=== PATIENT | male | born 1960 | race Caucasian/White ===

== ENCOUNTER → 2017-03-17 | Outpatient (CLI) | payer OTHER ==
[~2017-03-17] MED LIST: ASCA500 PO; CHOL100010 PO; CYAN10004 PO; MULT-506 PO; ROPI2TAB6 PO; VST25HP PO; WLLSR150 PO; ZLF/50 PO
== END | disposition home or self-care (01) ==
LOC: C.LAB 17:15
DX: Z02.83 Encounter for blood-alcohol and blood-drug test (principal)

== ENCOUNTER 2018-04-13 16:25 | Emergency (ER) | payer BC, OTHER ==
[~2018-04-13] VITALS: Ht 182.9 cm; Wt 74.8 kg
[~2018-04-13 16:25] MED LIST changes: -ASCA500 PO; -CYAN10004 PO; -MULT-506 PO; -WLLSR150 PO; -ZLF/50 PO
[2018-04-13 16:28] VITALS: TEMP 36.8; Ht 182.9 cm; Wt 74.8 kg
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
[2018-04-13] MEDS ORDERED: CHOL1CAP57 PO (17:02)
[2018-04-13] MEDS ORDERED: RQP/2 PO (17:02)
[2018-04-13] MEDS ORDERED: ZLF/100 PO (17:02)
[2018-04-13 17:30] VITALS: BP 109/73; PULSE 80; O2SAT 96
[2018-04-13] MEDS ORDERED: WLLSR150 PO (23:48)
[2018-04-13] MEDS ORDERED: ZLF/50 PO (23:48)
[2018-04-13] MEDS ORDERED: MULT-506 PO (23:51)
[2018-04-13] MEDS ORDERED: ASCA500 PO (23:51)
[2018-04-13] MEDS ORDERED: CYAN10004 PO (23:51)
== END 2018-04-13 17:31 | disposition home or self-care (01) ==
LOC: C.EDB 16:27
DX: T65.894A Toxic effect of other specified substances, undetermined, initial encounter (principal); F32.9 Major depressive disorder, single episode, unspecified; F43.10 Post-traumatic stress disorder, unspecified; F17.200 Nicotine dependence, unspecified, uncomplicated; Z79.899 Other long term (current) drug therapy

== ENCOUNTER 2022-08-25 23:50 | Inpatient (IN) ==
--- NOTE | 2022-08-26 00:41 | Emergency Department Note ---
Impression & Plan Suicidal ideation, Alcohol intoxication The case was signed out to doctor Conley awaiting bed placement. ED Provider Note NAME: SARANYA VIEIRA AGE: 61 SEX: M ARRIVES VIA: Walk-In INFORMANT: Patient ED PROVIDER(S): Lucrecia Carias DO CHIEF COMPLAINT: Suicidal ideation PLAN: Disposition: The case was signed out at change of shift Condition: Good MEDICAL DECISION MAKING: This is a 61-year-old male patient who was intoxicated who presents to the emergency department with thoughts of harming himself. The patient was initially intoxicated and took some time to sober up. Once he was medically cleared, he was evaluated by the ED psychiatric comp field case manager. He is suicidal with thoughts of harming himself. He is willing to admit himself voluntarily f or inpatient psychiatric care. A bed search is underway. The case will be signed out to Dr. Albright at change of shift. Triage Nursing notes reviewed and agree with them. Vital Signs: reviewed and remarkable for tachycardia Differential diagnosis: Alcohol intoxication, mood disorder, thought disorder, suicidal ideation Diagnostics interpreted by me: Laboratory studies: See below HPI: 61/M arrives for evaluation of thoughts of self-harm. Patient has a history of depression and alcohol abuse. He describes [facility] [facility] and then going for a drive at [employer] with thoughts of harming himself. Instead he drove himself here. Patient has a previous history of 3 overdoses. ROS: See above HPI for pertinent positives & negatives. A total of 10 systems reviewed and were otherwise negative. PAST MEDICAL HISTORY:Depression, alcohol abuse, recently diagnosed emphysema PAST SURGICAL HISTORY:See Below FAMILY HISTORY:See Below SOCIAL HISTORY:The patient is [facility]. HOME MEDICATIONS:He just recently tried to restart his sertraline, Wellbutrin, and Vistaril. He tried to quit smoking in the past couple of days. He does continue to drink. ALLERGIES:None VITALS:See Below PHYSICAL EXAMINATION: HEENT: Head - normocephalic and atraumatic. Pupils are equal, round, and reactive to light. Extraocular eye muscles are intact, and sclera are anicteric. Nose - moist nasal mucosa without discharge. Mouth - moist buccal mucosa. Oropharynx is nonerythematous and there is no tonsillar exudate or edema noted. Neck: Supple; no cervical lymphadenopathy or JVD Heart: Regular rate and rhythm. There is a normal S1 and S2 with no murmurs, clicks, or gallops appreciated. Lungs: Clear to auscultation bilaterally with no wheezes, rales, or rhonchi. Abdomen: Soft, completely nontender, nondistended, with good bowel sounds. There are no palpable pulsatile masses or hepatosplenomegaly. There is no guarding, rigidity, or rebound noted. Extremities: No evidence of cyanosis, clubbing, or edema. There are easily palpable peripheral pulses. Skin: warm and dry with good turgor and no rashes. Psych: The patient has a normal affect and makes good eye contact. He does admit to suicidal ideation with no plan. He is currently intoxicated. ED COURSE: Times/Reassessments: 0010: Evaluated in room A6. A complete history and physical was performed. Laboratory studies were drawn as above. The patient was noted to be intoxicated. We waited for the patient to sober up. Once he was more sober, he was evaluated by the ED psychiatric comp field case manager. The patient was evaluated by staff from [facility]. They suggested ordering an EKG, chest x-ray, and pulse ox with ambulation. EKG was unremarkable. Chest x-ray showed no evidence of an acute process. The pulse ox remained normal with ambulation. The review process continues. The case will be signed out to Dr. Benito at change of shift. Lucrecia Carias DO Past Med/Surg History Medical History Acetaminophen overdose Alcohol overdose Ankle sprain Depression Fall Mood disorder Prostate cancer PTSD (post-traumatic stress disorder) Restless leg syndrome Suicide attempt Suicide threat or attempt Urinary problem Surgical History H/O prostatectomy Family History Other No significant family history Social History Smoking Status: Current every day smoker Tobacco Type: Cigarettes Hx Alcohol Use: Yes Preferred Language: Polish Feels Safe at Home: Yes Allergies Allergies Allergy/AdvReac Type Severity Reaction Status Date / Time No Known Allergies Allergy Verified 09/21/21 01:08 Home Meds Home Medications Medication Instructions Recorded Confirmed albuterol sulfate 90 mcg/actuation 2 puff inhalation Q4 PRN Wheezing 08/26/22 08/26/22 aerosol inhaler azithromycin 250 mg tablet 250 mg PO DAILY 08/26/22 08/26/22 bupropion HCl 150 mg 24 hr tablet, 150 mg PO DAILY 08/26/22 08/26/22 extended release hydroxyzine pamoate 25 mg capsule 25 mg PO TID 08/26/22 08/26/22 prednisone 10 mg tablet 10 mg PO BID 08/26/22 08/26/22 sertraline 100 mg tablet 100 mg PO DAILY 08/26/22 08/26/22 Results & Data (ED) Vital Signs Vital Signs - 24 hr 08/25/22 23:56 08/26/22 01:51 08/26/22 04:45 Temperature 36.4 C L Temperature Source Temporal Artery Scan Pulse Rate 107 H Pulse Rate [Finger] 95 H 98 H Pulse Rhythm [Finger] Regular Pulse Strength [Finger] Normal Respiratory Rate 20 18 22 Respiratory Effort / Characteristics Non-Labored Spontaneous Respiratory Depth Normal Normal Blood Pressure 107/69 Blood Pressure [Right Arm] 91/63 L 101/68 Blood Pressure Mean 81 Blood Pressure Mean [Right Arm] 72 79 Pulse Oximetry 98 96 96 Oxygen Delivery Method Room Air Room Air Room Air Sepsis Recent Fever Within 48 Hours No Sepsis New/Unexplained Change in Mental Status N/A Sepsis Action Taken by Nursing No Action Required Laboratory Data Result diagrams: 08/26/22 00:33 08/26/22 00:33 Lab Results 08/26/22 08/26/22 08/26/22 Range/Units 00:15 00:15 00:33 WBC 6.00 (4.8-10.8) K/ul RBC 4.45 L (4.63-6.08) M/uL Hgb 16.8 (14.0-18.0) g/dl Hct 47.1 (40.1-51.0) % MCV 105.8 H (80.0-100.0) fL MCH 37.8 H (25.0-34.0) pg MCHC 35.7 (32.0-36.0) g/dL RDW Std Deviation 48.8 H (36.4-46.3) fL RDW Coeff of Silvia 12.4 (11.5-14.5) % Plt Count 230 (130-400) K/uL MPV 9.8 (9.4-12.4) fL Immature Gran % (Auto) 0.2 % Neut % (Auto) 52.2 % Lymph % (Auto) 39.8 % [place] % (Auto) 7.3 % Eos % (Auto) 0.3 % Baso % (Auto) 0.2 % Neut # (Auto) 3.13 (1.4-6.5) K/uL Lymph # (Auto) 2.39 (1.2-3.4) K/uL [place] # (Auto) 0.44 (0.24-0.82) K/uL Eos # (Auto) 0.02 (0-0.50) K/uL Baso # (Auto) 0.01 (0-0.2) K/uL Immature Gran # (Auto) 0.01 (0.00-0.02) K/uL Sodium (136-145) mmol/L Potassium (3.5-5.1) mmol/L Chloride (98-107) mmol/L Carbon Dioxide (21-32) mmol/L Anion Gap (3-11) BUN (6-23) mg/dl Creatinine (0.6-1.4) mg/dl Est Cr Clr Drug Dosing ml/min Est GFR ( Amer) ml/min Est GFR (Non-Af Amer) ml/min BUN/Creatinine Ratio (10-20) Glucose (70-99(Fasting)) mg/dl Calcium (8.5-10.1) mg/dl Total Bilirubin (0.2-1.0) mg/dl AST (13-39) U/L ALT (7-52) U/L Alkaline Phosphatase (34-104) U/L Total Protein (6.0-8.3) gm/dl Albumin (3.4-5.0) gm/dl Globulin (2.5-4.0) gm/dl Albumin/Globulin Ratio (0.9-2) TSH (0.300-4.500) uIu/ml Urine Color Yellow Urine Appearance Clear (Clear) Urine pH 6.0 (4.5-7.5) Ur Specific [place] 1.003 (1.000-1.030) Urine Protein Negative (Negative) Urine Glucose (UA) Negative (Negative) Urine Ketones Negative (Negative) Urine Blood 1+ H (Negative) Urine Nitrite Negative (Negative) Urine Bilirubin Negative (Negative) Urine Urobilinogen Negative (Negative) Ur Leukocyte Esterase Negative (Negative) Urine WBC (Auto) 0 (0-5) /hpf Urine RBC (Auto) 0-4 (0-4) /hpf U Hyaline Cast (Auto) 0 (0-5) /lpf U Epithel Cells (Auto) 0-5 (0-5) /lpf Urine Bacteria (Auto) Negative (Negative) Salicylates (3.0-30) mg/dl Urine Opiates Screen Neg (Neg) Ur Methadone, Qual Neg (Neg) Acetaminophen (10-30) ug/ml Urine Barbiturates Neg (Neg) Ur Phencyclidine (PCP) Neg (Neg) U Amphetamin/Meth Scrn Neg (Neg) MDMA (Ecstasy) Screen Neg (Neg) U Benzodiazepines Scrn Neg (Neg) Ur Cocaine Metabolite Neg (Neg) U Marijuana (THC) Screen Neg (Neg) Ethyl Alcohol mg/dL (<10.0) mg/dl SARS-CoV-2, RNA, NAAT (NEGATIVE) 08/26/22 08/26/22 08/26/22 Range/Units 00:33 00:33 00:33 WBC (4.8-10.8) K/ul RBC (4.63-6.08) M/uL Hgb (14.0-18.0) g/dl Hct (40.1-51.0) % MCV (80.0-100.0) fL MCH (25.0-34.0) pg MCHC (32.0-36.0) g/dL RDW Std Deviation (36.4-46.3) fL RDW Coeff of Silvia (11.5-14.5) % Plt Count (130-400) K/uL MPV (9.4-12.4) fL Immature Gran % (Auto) % Neut % (Auto) % Lymph % (Auto) % [place] % (Auto) % Eos % (Auto) % Baso % (Auto) % Neut # (Auto) (1.4-6.5) K/uL Lymph # (Auto) (1.2-3.4) K/uL [place] # (Auto) (0.24-0.82) K/uL Eos # (Auto) (0-0.50) K/uL Baso # (Auto) (0-0.2) K/uL Immature Gran # (Auto) (0.00-0.02) K/uL Sodium 138 (136-145) mmol/L Potassium 4.0 (3.5-5.1) mmol/L Chloride 104 (98-107) mmol/L Carbon Dioxide 27 (21-32) mmol/L Anion Gap 7 (3-11) BUN 9 (6-23) mg/dl Creatinine 0.93 (0.6-1.4) mg/dl Est Cr Clr Drug Dosing 68.5 ml/min Est GFR ( Amer) 100.9 ml/min Est GFR (Non-Af Amer) 87.1 ml/min BUN/Creatinine Ratio 9.7 L (10-20) Glucose 77 (70-99(Fasting)) mg/dl Calcium 9.1 (8.5-10.1) mg/dl Total Bilirubin 0.3 (0.2-1.0) mg/dl AST 28 (13-39) U/L ALT 31 (7-52) U/L Alkaline Phosphatase 74 (34-104) U/L Total Protein 7.0 (6.0-8.3) gm/dl Albumin 3.9 (3.4-5.0) gm/dl Globulin 3.1 (2.5-4.0) gm/dl Albumin/Globulin Ratio 1.3 (0.9-2) TSH 0.804 (0.300-4.500) uIu/ml Urine Color Urine Appearance (Clear) Urine pH (4.5-7.5) Ur Specific [place] (1.000-1.030) Urine Protein (Negative) Urine Glucose (UA) (Negative) Urine Ketones (Negative) Urine Blood (Negative) Urine Nitrite (Negative) Urine Bilirubin (Negative) Urine Urobilinogen (Negative) Ur Leukocyte Esterase (Negative) Urine WBC (Auto) (0-5) /hpf Urine RBC (Auto) (0-4) /hpf U Hyaline Cast (Auto) (0-5) /lpf U Epithel Cells (Auto) (0-5) /lpf Urine Bacteria (Auto) (Negative) Salicylates < 3.0 L (3.0-30) mg/dl Urine Opiates Screen (Neg) Ur Methadone, Qual (Neg) Acetaminophen < 3 L (10-30) ug/ml Urine Barbiturates (Neg) Ur Phencyclidine (PCP) (Neg) U Amphetamin/Meth Scrn (Neg) MDMA (Ecstasy) Screen (Neg) U Benzodiazepines Scrn (Neg) Ur Cocaine Metabolite (Neg) U Marijuana (THC) Screen (Neg) Ethyl Alcohol mg/dL (<10.0) mg/dl SARS-CoV-2, RNA, NAAT (NEGATIVE) 08/26/22 08/26/22 Range/Units 00:33 00:33 WBC (4.8-10.8) K/ul RBC (4.63-6.08) M/uL Hgb (14.0-18.0) g/dl Hct (40.1-51.0) % MCV (80.0-100.0) fL MCH (25.0-34.0) pg MCHC (32.0-36.0) g/dL RDW Std Deviation (36.4-46.3) fL RDW Coeff of Silvia (11.5-14.5) % Plt Count (130-400) K/uL MPV (9.4-12.4) fL Immature Gran % (Auto) % Neut % (Auto) % Lymph % (Auto) % [place] % (Auto) % Eos % (Auto) % Baso % (Auto) % Neut # (Auto) (1.4-6.5) K/uL Lymph # (Auto) (1.2-3.4) K/uL [place] # (Auto) (0.24-0.82) K/uL Eos # (Auto) (0-0.50) K/uL Baso # (Auto) (0-0.2) K/uL Immature Gran # (Auto) (0.00-0.02) K/uL Sodium (136-145) mmol/L Potassium (3.5-5.1) mmol/L Chloride (98-107) mmol/L Carbon Dioxide (21-32) mmol/L Anion Gap (3-11) BUN (6-23) mg/dl Creatinine (0.6-1.4) mg/dl Est Cr Clr Drug Dosing ml/min Est GFR ( Amer) ml/min Est GFR (Non-Af Amer) ml/min BUN/Creatinine Ratio (10-20) Glucose (70-99(Fasting)) mg/dl Calcium (8.5-10.1) mg/dl Total Bilirubin (0.2-1.0) mg/dl AST (13-39) U/L ALT (7-52) U/L Alkaline Phosphatase (34-104) U/L Total Protein (6.0-8.3) gm/dl Albumin (3.4-5.0) gm/dl Globulin (2.5-4.0) gm/dl Albumin/Globulin Ratio (0.9-2) TSH (0.300-4.500) uIu/ml Urine Color Urine Appearance (Clear) Urine pH (4.5-7.5) Ur Specific [place] (1.000-1.030) Urine Protein (Negative) Urine Glucose (UA) (Negative) Urine Ketones (Negative) Urine Blood (Negative) Urine Nitrite (Negative) Urine Bilirubin (Negative) Urine Urobilinogen (Negative) Ur Leukocyte Esterase (Negative) Urine WBC (Auto) (0-5) /hpf Urine RBC (Auto) (0-4) /hpf U Hyaline Cast (Auto) (0-5) /lpf U Epithel Cells (Auto) (0-5) /lpf Urine Bacteria (Auto) (Negative) Salicylates (3.0-30) mg/dl Urine Opiates Screen (Neg) Ur Methadone, Qual (Neg) Acetaminophen (10-30) ug/ml Urine Barbiturates (Neg) Ur Phencyclidine (PCP) (Neg) U Amphetamin/Meth Scrn (Neg) MDMA (Ecstasy) Screen (Neg) U Benzodiazepines Scrn (Neg) Ur Cocaine Metabolite (Neg) U Marijuana (THC) Screen (Neg) Ethyl Alcohol mg/dL 150.5 H (<10.0) mg/dl SARS-CoV-2, RNA, NAAT NEGATIVE (NEGATIVE) Imaging Data Radiologist's Impression: Chest X-Ray 08/26/22 04:38 XR chest 1V portable HISTORY: 61 years-old Male [place] wants it acutely altered mental status COMPARISON: Chest and rib radiographs 09/21/2021 TECHNIQUE: Semierect AP view of the chest FINDINGS: Cardiomediastinal and hilar silhouettes are unchanged. Suggested emphysema with chronic interstitial coarsening. No pneumothorax, pleural effusion, airspace consolidation or overt pulmonary edema. Healed chronic fracture of the posterior lateral left eighth rib. Degenerative changes of the shoulders and spine. IMPRESSION: No acute process. ACT 112: Negative or not required by law. The above report was generated using voice recognition software. It may contain grammatical, syntax or spelling errors. Electronically signed by: Oseas Leigh M.D. 08/26/2022 6:52 AM Discharge Plan Visit Data Chief Complaint: Mental Health Evaluation Stated Complaint: FEELINGS OF SELF HARM ED Provider: Lucrecia Carias Discharge Problem: Suicidal ideation, Alcohol intoxication Forms Stand Alone Forms: [facility], Suicide Prevention Resources Prescriptions Prescriptions: No Action prednisone 10 mg tablet 10 mg PO BID Rx Instructions: 08/24: Pred taper: 5 tabs BID x 2 day, 4 tabs BID x 2 day, 3 tabs BID x 2 day, 2 tabs BID x 2 day, 1 tabs BID x 2 day azithromycin 250 mg tablet 250 mg PO DAILY Rx Instructions: 08/24: 250mg BID X1 day, then 1 tab PO x4 days sertraline 100 mg tablet 100 mg PO DAILY albuterol sulfate 90 mcg/actuation HFA aerosol inhaler 2 puff INHALATION Q4 PRN (Reason: Wheezing) hydroxyzine pamoate 25 mg capsule 25 mg PO TID Rx Instructions: 1AM, 1 at noon, 1 in evening bupropion HCl 150 mg tablet extended release 24 hr 150 mg PO DAILY Referrals Referrals: Inocencia Cisneros PA-C [Primary Care Provider] - : Alcohol intoxication Qualifiers: Complication of substance-induced condition: with unspecified complication Qualified Code(s): F10.929 - Alcohol use, unspecified with intoxication, unspecified
[2022-08-26 00:52] LABS: Basophils # (auto) 0.01 K/uL (0-0.2); Basophils % (auto) 0.2 %; Eosinophils # (auto) 0.02 K/uL (0-0.50); Eosinophils % (auto) 0.3 %; Hematocrit (blood only) 47.1 % (40.1-51.0); Hemoglobin 16.8 g/dl (14.0-18.0); Immature Granulocytes # (auto) 0.01 K/uL (0.00-0.02); Immature Granulocytes % (auto) 0.2 %; Lymphocytes # (auto) 2.39 K/uL (1.2-3.4); Lymphocytes % (auto) 39.8 %; Mean Corpuscular Hemoglobin 37.8 pg (25.0-34.0); Mean Corpuscular Hgb Conc 35.7 g/dL (32.0-36.0); Mean Corpuscular Volume 105.8 fL (80.0-100.0); Mean Platelet Volume 9.8 fL (9.4-12.4); Monocytes # (auto) 0.44 K/uL (0.24-0.82); Monocytes % (auto) 7.3 %; Neutrophils # (auto) 3.13 K/uL (1.4-6.5); Neutrophils % (auto) 52.2 %; Platelet Count 230 K/uL (130-400); RDW Coefficient of Variation 12.4 % (11.5-14.5); RDW Standard Deviation 48.8 fL (36.4-46.3); Red Blood Count 4.45 M/uL (4.63-6.08)
[2022-08-26 00:58] LABS: Appearance Urine Clear (Clear); Bilirubin Urine Negative (Negative); Blood Urine 1+ (Negative); Color Urine Yellow; Glucose Urine UA Negative (Negative); Ketones Urine Negative (Negative); Leukocyte Esterase Urine Negative (Negative); Nitrite Urine Negative (Negative); Protein Urine Negative (Negative); Specific Gravity Urine 1.003 (1.000-1.030); Urobilinogen Urine Negative (Negative)
[2022-08-26 01:13] LABS: Amphetamines+Metham, Urine Neg (Neg); Barbiturates, Urine Neg (Neg); Benzodiazepine, Urine Neg (Neg); Cocaine, Urine Neg (Neg); MDMA (Ecstacy), Urine Neg (Neg); Methadone, Urine Neg (Neg); Opiate, Urine Neg (Neg); Phencyclidine, Urine Neg (Neg)
[2022-08-26 01:14] LABS: Albumin Globulin Ratio 1.3 (0.9-2); Albumin Level 3.9 gm/dl (3.4-5.0); BUN Creatinine Ratio 9.7 (10-20); Bilirubin,Total 0.3 mg/dl (0.2-1.0); Calcium 9.1 mg/dl (8.5-10.1); Creatinine Clr Calc Pharmacy 68.5 ml/min; Est GFR (African American) 100.9 ml/min; Est GFR (Non-African American) 87.1 ml/min; Globulin 3.1 gm/dl (2.5-4.0)
[2022-08-26 01:15] LABS: Acetaminophen < 3 ug/ml (10-30); Salicylate < 3.0 mg/dl (3.0-30)
[2022-08-26 01:20] LABS: Bacteria Urine Automated Negative (Negative); Cast Urine Automated 0 /lpf (0-5); Epithelial Cell Urine Auto 0-5 /lpf (0-5); RBC Urine Automated 0-4 /hpf (0-4); WBC Urine Automated 0 /hpf (0-5)
--- NOTE | 2022-08-26 06:53 | XRay Report ---
XR chest 1V portable HISTORY: 61 years-old Male [place] wants it acutely altered mental status COMPARISON: Chest and rib radiographs 09/21/2021 TECHNIQUE: Semierect AP view of the chest FINDINGS: Cardiomediastinal and hilar silhouettes are unchanged. Suggested emphysema with chronic interstitial coarsening. No pneumothorax, pleural effusion, airspace consolidation or overt pulmonary edema. Heale d chronic fracture of the posterior lateral left eighth rib. Degenerative changes of the shoulders an d spine. IMPRESSION: No acute process. ACT 112: Negative or not required by law. The above report was generated using voice recognition software. It may contain grammatical, syntax o r spelling errors. Electronically signed by: Oseas Leigh M.D. 08/26/2022 6:52 AM
--- NOTE | 2022-08-26 08:35 | Emergency Department Note ---
ED Visit Note OBSERVATION SIGNOUT NOTE Date and Time: 08/26/2022 at 0835 hrs. Interval History: Sign out received from Dr. Carias who reviewed details of the encounter. Patient was pending evaluation by [facility] mental health for suicidal ideation. Summary: Patient was re-evaluated at 0 950 and vital signs reviewed. Patient excepted at [facility]. Did request his morning medications. I did order his albuterol MDI, Zithromax and prednisone. [facility]. will take care of his other medications. Disposition: 08/26/2022 at 1005 hrs Total Time: 9 hours . : Alcohol intoxication Qualifiers: Complication of substance-induced condition: with unspecified complication Qualified Code(s): F10.929 - Alcohol use, unspecified with intoxication, unspecified
[2022-08-26] MEDS ORDERED: ALBUTEROL HFA 8 GM INHALER INH ONE (09:50)
[2022-08-26] MEDS ORDERED: AZITHROMYCIN 250 MG TAB PO ONE ×2 (09:50→09:55)
[2022-08-26] MEDS ORDERED: ALUMINUM/MAGNESIUM SUSP 30 ML UDC PO PRN (09:52)
[2022-08-26] MEDS ORDERED: SODIUM CHLORIDE 0.65% NA SOLN 45 ML (OCEAN) PRN (09:52)
[2022-08-26] MEDS ORDERED: predniSONE 50 MG TAB PO STA (09:52)
[2022-08-26] MEDS ORDERED: BISMUTH SUBSALICYLATE LIQD 236 ML PO PRN (09:52)
[2022-08-26] MEDS ORDERED: MAGNESIUM HYDROXIDE SUSP 30 ML UDC PO PRN (09:52)
[2022-08-26] MEDS ORDERED: ACETAMINOPHEN 325 MG TAB PO PRN (09:52)
[2022-08-26] MEDS ORDERED: hydrOXYzine HCl 25 MG TAB PO PRN (09:52)
[2022-08-26] MEDS ORDERED: ALBUTEROL HFA 8 GM INHALER INH PRN (09:54)
[2022-08-26] MEDS ORDERED: ALBUTEROL 0.083% NEBU SOLN 3 ML VIAL ONE (12:39)
[2022-08-26] MEDS ORDERED: buPROPion SR 100 MG TABCR PO ONE (13:20)
[2022-08-26] MEDS ORDERED: guaiFENesin/DEXTROM SYRUP 100MG/10MG 5ML UDC PO PRN (13:20)
[2022-08-26] MEDS ORDERED: guaiFENesin/DEXTROM SYRUP 100MG/10MG 5ML UDC PO ONE (13:20)
[2022-08-26] MEDS: SERTRALINE HCL 50 MG TABLET PO SCH (14:01)
[2022-08-26] MEDS ORDERED: Ativan PO Alcohol Withdrawal--Active Protocol PO PRN (14:12)
[2022-08-26] MEDS ORDERED: LORazepam 1 MG TAB PO PRN ×3 (14:12)
--- NOTE | 2022-08-26 15:01 | History & Physical ---
Date of Service August 26, 2022 Impression / Recommendations Impression 61 yo male with a hx of alcohol use disorder and recurrent depression, PTSD dx, presented to ED with worsening depression/SI and ETOH use in the context of relationship stressors with legal ramifications and recurrence of CA. (1) Depression: Depression Type: unspecified Qualified Code(s): F32.9 - Major depressive disorder, single episode, unspecified (2) Alcohol intoxication: Complication of substance-induced condition: with unspecified comp lication Qualified Code(s): F10.929 - Alcohol use, unspecified with intoxication, unspecified (3) Suicidal ideation: Plan The patient was admitted to the [facility] on q15 min checks (behavioral with suicide precautions) for safety. The patient will participate in group, recreational, and milieu therapies and will be offered additional individual and family sessions as clinically appropriate. He will be offered Ativan prn according to objective AWSS protocol. He is declining Neurontin loading. Albuterol nebs per respiratory therapy. Will complete antibiotics and steroid course. consider medicine consult. Risks/benefits/alternatives reviewed re: restart of his Wellbutrin and Zoloft as planned from outpatient provider. He desires to resume these medications. 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 Chief Complaint "I just have a lot going on, I couldn't take it". 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 He was seen at [facility] urgent care a few days prior to admission and treated for "emphysema". Between his cough/wheeze and steroid loading he has not been sleeping well. He is also feeling more depressed anticipation of "another" PFA hearing on 08/28/22. He had been living with his girlfriend up until this recent charge and has a history of homelessness prior to that. They have a history of dramatic breakups, one of which preciptiated his suicidal attempte (OD on Tylenol #3 and alcohol). He denies a history of alcohol withdrawal but there is documentation on chart of past rehab stays and heavy alcohol use. His VS were stable in ED save tachycardia when walked to check O2 saturations on ambulation. An EKG and CXR were requested from ED as part of medical clearance and he arrived to the unit in discomfort/audible wheeze with some benefit from nebulizer treatment. He has a longstanding positive response to Zoloft and Wellbutrin but hasn't taken for at least 2 months. He was to restart but reports not following through as he wasn't sure when to take his medications given his work schedule, he typically awakens for the day around 2:30 pm. Other stressor includes recurrence of his prostate CA following prostatectomy. Past Psychiatric History Current Psychiatric Diagnosis: Bipolar disorder, MDD, PTSD, [facility] Outpatient Services: PCP only Previous Psych Admissions: 2016 [place], [address] Do You Have Access To A Gun?: No (hx 302 but need confirm parents home) History of Previous Suicide Attempt: Yes (Jan 2015 Tylenol/ETOH OD.) Past Medication Trials: Effexor XR, Paxil, Zoloft, Wellbutrin, "probably others" Past Head Trauma/Neuro History History of Concussion/Seizure: No Allergies Allergy/AdvReac Type Severity Reaction Status Date / Time No Known Allergies Allergy Verified 09/21/21 01:08 Home Medications Medication Instructions Recorded Confirmed Type albuterol sulfate 90 mcg/actuation 2 puff inhalation Q4 PRN Wheezing 08/26/22 08/26/22 History aerosol inhaler azithromycin 250 mg tablet 250 mg PO DAILY 08/26/22 08/26/22 History bupropion HCl 150 mg 24 hr tablet, 150 mg PO DAILY 08/26/22 08/26/22 History extended release hydroxyzine pamoate 25 mg capsule 25 mg PO TID PRN Anxiety 08/26/22 08/26/22 History prednisone 10 mg tablet 10 mg PO BID 08/26/22 08/26/22 History sertraline 100 mg tablet 100 mg PO DAILY 08/26/22 08/26/22 History Family History Family History of: Depression (sister had ECT.), Alcoholism/Drug Abuse (grandfather) and Suicide Attempts (grandfather) Alcohol History Hx of Alcohol Use Over the Past 12 Months: Yes ("a beer an hour, everyday") AUDIT Total Score: 26 Smoking Use Have You Smoked or Used Tobacco Products in the Last 30 Days: Yes tobacco type: cigarettes Smoking Status: Current every day smoker Smoking packs per day: 1 Substance History Hx of Prescription Med Misuse Over the Past 12 Months: No Hx of Over the Counter Med Misuse Over the Past 12 Months: No Hx of Inhalent Misuse Over the Past 12 Months: No Hx of Organic Substance Use Over the Past 12 Months: No Hx of Illegal Substances/Street Drug Use Over Past 12 Months: No Problems as a Result of Past Substance Use: Relationships Ended, Life out of Control and 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 Problems as a Result of Past Substance Use Comments: history of DUIs with loss of license, several rehab admissions Personal History Living Arrangements: Home Highest Grade Completed: High School Graduate 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[employer]) Marital Status: Single Number Of Children: 1 daughter Beliefs That Will Affect Care: None Current Legal Problems: Yes (PFA, loss of license) Psychological Trauma History Comment: hx of PTSD related to service Patient History Medical History Acetaminophen overdose Alcohol overdose Ankle sprain Depression Fall Mood disorder Prostate cancer PTSD (post-traumatic stress disorder) Restless leg syndrome Suicide attempt Suicide threat or attempt Urinary problem Surgical History H/O prostatectomy Family History Other No significant family history Social History Smoking Status: Current every day smoker Tobacco Type: Cigarettes Hx Alcohol Use: Yes Preferred Language: Ivorian Communication Ability: Effective 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 Beliefs That Will Affect Care: None Feels Safe at Home: Yes Assistive Devices: Glasses Review of Systems Review of Systems: All systems reviewed & are unremarkable except as noted in HPI & below Physical Exam Psychiatric: Orientation: alert and oriented x 3 Apperance: appropriately dressed Eye Contact: good eye contact Motor Behavior: no abnormal motor movements Speech: normal rate/rhythm/volume of speech Affect: + depressed affect Mood: + depressed mood Thought Process: goal directed thought process Thought Content: reality based without delusions Suicidal Thoughts: denies suicidal thoughts (while sober, unable to safety plan) Homicidal Thoughts: denies homicidal thoughts Hallucinations: no auditory hallucinations and no visual hallucinations Cognition: attention grossly intact and language grossly intact Estimated Intelligence: consistent with education level Insight: + limited insight Judgement: + limited judgement Vital Signs (Past 24 Hours): Last Vital Signs Temp 36.7 C 08/26/22 14:15 Pulse 112 H 08/26/22 14:15 Resp 20 08/26/22 14:15 BP 109/74 08/26/22 14:15 Pulse Ox 93 08/26/22 13:34 O2 Del Method 08/26/22 13:34 Exam Statement: A physical exam was performed in the ED by Dr. Carias for the purposes of medical clearance. I accept that physical as correct and adequate for the purposes of the inpatient physical exam. Results & Data ([facility]) Laboratory Results Laboratory Results - last 24 hr 08/26/22 08/26/22 08/26/22 00:15 00:15 00:33 WBC 6.00 RBC 4.45 L Hgb 16.8 Hct 47.1 MCV 105.8 H MCH 37.8 H MCHC 35.7 RDW Std Deviation 48.8 H RDW Coeff of Silvia 12.4 Plt Count 230 MPV 9.8 Immature Gran % (Auto) 0.2 Neut % (Auto) 52.2 Lymph % (Auto) 39.8 Upton % (Auto) 7.3 Eos % (Auto) 0.3 Baso % (Auto) 0.2 Neut # (Auto) 3.13 Lymph # (Auto) 2.39 Upton # (Auto) 0.44 Eos # (Auto) 0.02 Baso # (Auto) 0.01 Immature Gran # (Auto) 0.01 Sodium Potassium Chloride Carbon Dioxide Anion Gap BUN Creatinine Est Cr Clr Drug Dosing Est GFR ( Amer) Est GFR (Non-Af Amer) BUN/Creatinine Ratio Glucose Calcium Total Bilirubin AST ALT Alkaline Phosphatase Total Protein Albumin Globulin Albumin/Globulin Ratio TSH Urine Color Yellow Urine Appearance Clear Urine pH 6.0 Ur Specific Smith 1.003 Urine Protein Negative Urine Glucose (UA) Negative Urine Ketones Negative Urine Blood 1+ H Urine Nitrite Negative Urine Bilirubin Negative Urine Urobilinogen Negative Ur Leukocyte Esterase Negative Urine WBC (Auto) 0 Urine RBC (Auto) 0-4 U Hyaline Cast (Auto) 0 U Epithel Cells (Auto) 0-5 Urine Bacteria (Auto) Negative Salicylates Urine Opiates Screen Neg Ur Methadone, Qual Neg Acetaminophen Urine Barbiturates Neg Ur Phencyclidine (PCP) Neg U Amphetamin/Meth Scrn Neg MDMA (Ecstasy) Screen Neg U Benzodiazepines Scrn Neg Ur Cocaine Metabolite Neg U Marijuana (THC) Screen Neg Ethyl Alcohol mg/dL SARS-CoV-2, RNA, NAAT 08/26/22 08/26/22 08/26/22 00:33 00:33 00:33 WBC RBC Hgb Hct MCV MCH MCHC RDW Std Deviation RDW Coeff of Silvia Plt Count MPV Immature Gran % (Auto) Neut % (Auto) Lymph % (Auto) Upton % (Auto) Eos % (Auto) Baso % (Auto) Neut # (Auto) Lymph # (Auto) Upton # (Auto) Eos # (Auto) Baso # (Auto) Immature Gran # (Auto) Sodium 138 Potassium 4.0 Chloride 104 Carbon Dioxide 27 Anion Gap 7 BUN 9 Creatinine 0.93 Est Cr Clr Drug Dosing 68.5 Est GFR ( Amer) 100.9 Est GFR (Non-Af Amer) 87.1 BUN/Creatinine Ratio 9.7 L Glucose 77 Calcium 9.1 Total Bilirubin 0.3 AST 28 ALT 31 Alkaline Phosphatase 74 Total Protein 7.0 Albumin 3.9 Globulin 3.1 Albumin/Globulin Ratio 1.3 TSH 0.804 Urine Color Urine Appearance Urine pH Ur Specific Smith Urine Protein Urine Glucose (UA) Urine Ketones Urine Blood Urine Nitrite Urine Bilirubin Urine Urobilinogen Ur Leukocyte Esterase Urine WBC (Auto) Urine RBC (Auto) U Hyaline Cast (Auto) U Epithel Cells (Auto) Urine Bacteria (Auto) Salicylates < 3.0 L Urine Opiates Screen Ur Methadone, Qual Acetaminophen < 3 L Urine Barbiturates Ur Phencyclidine (PCP) U Amphetamin/Meth Scrn MDMA (Ecstasy) Screen U Benzodiazepines Scrn Ur Cocaine Metabolite U Marijuana (THC) Screen Ethyl Alcohol mg/dL SARS-CoV-2, RNA, NAAT 08/26/22 08/26/22 00:33 00:33 WBC RBC Hgb Hct MCV MCH MCHC RDW Std Deviation RDW Coeff of Silvia Plt Count MPV Immature Gran % (Auto) Neut % (Auto) Lymph % (Auto) Upton % (Auto) Eos % (Auto) Baso % (Auto) Neut # (Auto) Lymph # (Auto) Upton # (Auto) Eos # (Auto) Baso # (Auto) Immature Gran # (Auto) Sodium Potassium Chloride Carbon Dioxide Anion Gap BUN Creatinine Est Cr Clr Drug Dosing Est GFR ( Amer) Est GFR (Non-Af Amer) BUN/Creatinine Ratio Glucose Calcium Total Bilirubin AST ALT Alkaline Phosphatase Total Protein Albumin Globulin Albumin/Globulin Ratio TSH Urine Color Urine Appearance Urine pH Ur Specific Smith Urine Protein Urine Glucose (UA) Urine Ketones Urine Blood Urine Nitrite Urine Bilirubin Urine Urobilinogen Ur Leukocyte Esterase Urine WBC (Auto) Urine RBC (Auto) U Hyaline Cast (Auto) U Epithel Cells (Auto) Urine Bacteria (Auto) Salicylates Urine Opiates Screen Ur Methadone, Qual Acetaminophen Urine Barbiturates Ur Phencyclidine (PCP) U Amphetamin/Meth Scrn MDMA (Ecstasy) Screen U Benzodiazepines Scrn Ur Cocaine Metabolite U Marijuana (THC) Screen Ethyl Alcohol mg/dL 150.5 H SARS-CoV-2, RNA, NAAT NEGATIVE Current Inpatient Medications Current Inpatient Medications: Current Inpatient Medications Acetaminophen (Acetaminophen 325 Mg Tab) 650 mg PO Q4H PRN PRN Reason: Headache or Minor Fever Stop: 09/25/22 09:51 Al Hydrox/Mg Hydrox/Simethicone (Aluminum/Magnesium Susp 30 Ml Udc) 30 ml PO Q4H PRN PRN Reason: GI Upset Stop: 09/25/22 09:51 Albuterol (Pt's Own Med: Albuterol Hfa 8 Gm Inhaler) 2 puffs INH Q4 PRN PRN Reason: Wheezing Stop: 09/25/22 11:35 Albuterol (Albuterol 0.5% Neb Soln 2.5 Mg/0.5 Ml Vial) 2.5 mg NEB Q6R CORNELIUS; Protocol Stop: 09/25/22 18:59 Azithromycin (Azithromycin 250 Mg Tab) 250 mg PO QAM [facility] Stop: 08/27/22 09:01 Bismuth Subsalicylate (Bismuth Subsalicylate Liqd 236 Ml) 15 ml PO PRN PRN PRN Reason: Loose Stool Stop: 09/25/22 09:51 Bupropion HCl (Bupropion Xl 150 Mg Tabcr) 150 mg PO DAILY [facility] Stop: 09/26/22 08:59 Guaifenesin/Dextromethorphan (Guaifenesin/Dextrom Syrup 100mg/10mg 5ml Udc) 5 ml PO Q6H PRN PRN Reason: Cough Stop: 09/25/22 13:19 Hydroxyzine HCl (Hydroxyzine Hcl 25 Mg Tab) 50 mg PO HSZ PRN PRN Reason: Insomnia Stop: 09/25/22 09:51 Hydroxyzine HCl (Hydroxyzine Hcl 25 Mg Tab) 25 mg PO Q4H PRN PRN Reason: Anxiety Stop: 09/25/22 09:51 Lorazepam (Lorazepam 1 Mg Tab) 1 mg PO UD PRN; Protocol PRN Reason: EtOH Withdrawal AWSS Score 6,7 Stop: 09/25/22 14:11 Lorazepam (Lorazepam 1 Mg Tab) 3 mg PO ONCE PRN; Protocol PRN Reason: EtOH Withdrawal AWSS Score 10 & above Lorazepam (Lorazepam 1 Mg Tab) 2 mg PO UD PRN; Protocol PRN Reason: EtOH Withdrawal AWSS Score 8,9 Stop: 09/25/22 14:11 Magnesium Hydroxide (Magnesium Hydroxide Susp 30 Ml Udc) 30 ml PO DAILY PRN PRN Reason: Constipation Stop: 09/25/22 09:51 Prednisone (Prednisone 10 Mg Tablet) 30 mg PO BID [facility] Stop: 09/25/22 20:59 Sertraline HCl (Sertraline Hcl 50 Mg Tablet) 50 mg PO QAM [facility] Stop: 09/25/22 13:29 Last Admin: 08/26/22 14:01 Dose: 50 mg Sodium Chloride (Sodium Chloride 0.65% Na Soln 45 Ml ([place])) 1 - 2 sprays NA PRN PRN PRN Reason: Nasal Dryness/Congestion Stop: 09/25/22 09:51
[2022-08-26] MEDS: ALBUTEROL 0.5% NEB SOLN 2.5 MG/0.5 ML VIAL NEB SCH (20:05)
[2022-08-26] MEDS: predniSONE 10 MG TABLET PO SCH (20:59)
--- NOTE | 2022-08-26 21:58 | Electrocardiogram Report ---
Test Reason : Blood Pressure : / mmHG Vent. Rate : 103 BPM Atrial Rate : 103 BPM P-R Int : 124 ms QRS Dur : 092 ms QT Int : 370 ms P-R-T Axes : 086 097 103 degrees QTc Int : 484 ms Sinus tachycardia Rightward axis Prolonged QT Nonspecific T wave abnormality Abnormal ECG When compared with ECG of 30-DEC-2014 03:01, T wave amplitude has decreased in Inferior leads Nonspecific T wave abnormality now evident in Lateral leads QT has lengthened Confirmed by Eric Zaldivar ([id number]) on 08/26/2022 9:58:03 PM Referred By: REFERRED SELF Confirmed By:Eric Zaldivar
[2022-08-27] MEDS: ALBUTEROL 0.5% NEB SOLN 2.5 MG/0.5 ML VIAL NEB SCH ×4 (00:20→19:32)
[2022-08-27] MEDS: hydrOXYzine HCl 25 MG TAB PO PRN ×2 (00:44→21:02)
--- NOTE | 2022-08-27 07:23 | Psychiatric Progress Note ---
Date of Service August 27, 2022 Impression / Recommendations Impression 61 yo male with a hx of alcohol use disorder and recurrent depression, PTSD dx, presented to ED with worsening depression/SI and ETOH use in the context of relationship stressors with legal ramifications and recurrence of CA. 08/27/22: adjusting to unit, respiratory symptoms improved (1) Depression: (2) Alcohol intoxication: (3) Suicidal ideation: Plan 08/27/22: continue current medications and treatment plan with planned titration of Zoloft likely soon, will be tapering steroids again tomorrow. 08/26/22: The patient was admitted to the [facility] ([facility] mental [facility] unit) on q15 min checks (behavioral with suicide precautions) for safety. The patient will participate in group, recreational, and milieu therapies and will be offered additional individual and family sessions as clinically appropriate. He will be offered Ativan prn according to objective AWSS protocol. He is declining Neurontin loading. Albuterol nebs per respiratory therapy. Will complete antibiotics and steroid course. consider medicine consult. Risks/benefits/alternatives reviewed re: restart of his Wellbutrin and Zoloft as planned from outpatient provider. He desires to resume these medications. 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 Chief Complaint "yeah I'm getting around OK" Review of Systems Sleep Information Total Hours of Sleep: 4 Sleep Comments: typically works nights, feels Vistaril was effective Meal Information Percent Meal Consumed - Lunch: 50 Percent Meal Consumed - Dinner: 100 Subjective Subjective Patient was seen & assessed and interval progress reviewed with nursing and social work. Cooperative with unit routines. Masks when prompted as his cough remains frequent/loose but he states he feels he is breathing much better. He has been tachy at times, seems more related to albuterol as he otherwise denies subjective symptoms of ETOH withdrawal. Physical Exam Psychiatric Orientation: alert and oriented x 3 Apperance: appropriately dressed Eye Contact: good eye contact Motor Behavior: no abnormal motor movements Speech: normal rate/rhythm/volume of speech Affect: + depressed affect Mood: + depressed mood Thought Process: goal directed thought process Thought Content: reality based without delusions Suicidal Thoughts: denies suicidal thoughts Homicidal Thoughts: denies homicidal thoughts Hallucinations: no auditory hallucinations and no visual hallucinations Cognition: attention grossly intact and language grossly intact Estimated Intelligence: consistent with education level Insight: + limited insight Judgement: + limited judgement Vital Signs (Past 24 Hours) Last Vital Signs Temp 36.8 C 08/27/22 06:28 Pulse 97 H 08/27/22 06:29 Resp 16 08/27/22 06:28 BP 110/80 08/27/22 06:29 Pulse Ox 97 08/26/22 20:05 O2 Del Method 08/26/22 20:05 Results & Data ([facility]) Current Inpatient Medications Current Inpatient Medications: Current Inpatient Medications Acetaminophen (Acetaminophen 325 Mg Tab) 650 mg PO Q4H PRN PRN Reason: Headache or Minor Fever Stop: 09/25/22 09:51 Al Hydrox/Mg Hydrox/Simethicone (Aluminum/Magnesium Susp 30 Ml Udc) 30 ml PO Q4H PRN PRN Reason: GI Upset Stop: 09/25/22 09:51 Albuterol (Pt's Own Med: Albuterol Hfa 8 Gm Inhaler) 2 puffs INH Q4 PRN PRN Reason: Wheezing Stop: 09/25/22 11:35 Albuterol (Albuterol 0.5% Neb Soln 2.5 Mg/0.5 Ml Vial) 2.5 mg NEB Q6R CORNELIUS; Protocol Stop: 09/25/22 18:59 Last Admin: 08/27/22 00:20 Dose: Not Given Azithromycin (Azithromycin 250 Mg Tab) 250 mg PO QAM [facility] Stop: 08/27/22 09:01 Bismuth Subsalicylate (Bismuth Subsalicylate Liqd 236 Ml) 15 ml PO PRN PRN PRN Reason: Loose Stool Stop: 09/25/22 09:51 Bupropion HCl (Bupropion Xl 150 Mg Tabcr) 150 mg PO DAILY [facility] Stop: 09/26/22 08:59 Guaifenesin/Dextromethorphan (Guaifenesin/Dextrom Syrup 100mg/10mg 5ml Udc) 5 ml PO Q6H PRN PRN Reason: Cough Stop: 09/25/22 13:19 Hydroxyzine HCl (Hydroxyzine Hcl 25 Mg Tab) 50 mg PO HSZ PRN PRN Reason: Insomnia Stop: 09/25/22 09:51 Last Admin: 08/27/22 00:44 Dose: 50 mg Hydroxyzine HCl (Hydroxyzine Hcl 25 Mg Tab) 25 mg PO Q4H PRN PRN Reason: Anxiety Stop: 09/25/22 09:51 Lorazepam (Lorazepam 1 Mg Tab) 1 mg PO UD PRN; Protocol PRN Reason: EtOH Withdrawal AWSS Score 6,7 Stop: 09/25/22 14:11 Lorazepam (Lorazepam 1 Mg Tab) 3 mg PO ONCE PRN; Protocol PRN Reason: EtOH Withdrawal AWSS Score 10 & above Lorazepam (Lorazepam 1 Mg Tab) 2 mg PO UD PRN; Protocol PRN Reason: EtOH Withdrawal AWSS Score 8,9 Stop: 09/25/22 14:11 Magnesium Hydroxide (Magnesium Hydroxide Susp 30 Ml Udc) 30 ml PO DAILY PRN PRN Reason: Constipation Stop: 09/25/22 09:51 Prednisone (Prednisone 10 Mg Tablet) 30 mg PO BID [facility] Stop: 09/25/22 20:59 Last Admin: 08/26/22 20:59 Dose: 30 mg Sertraline HCl (Sertraline Hcl 50 Mg Tablet) 50 mg PO QAM [facility] Stop: 09/25/22 13:29 Last Admin: 08/26/22 14:01 Dose: 50 mg Sodium Chloride (Sodium Chloride 0.65% Na Soln 45 Ml ([place])) 1 - 2 sprays NA PRN PRN PRN Reason: Nasal Dryness/Congestion Stop: 09/25/22 09:51 Post Discharge Appointments Primary Care Physician Name Of Family Doctor: Inocencia Cisneros ([facility]) (1) Alcohol intoxication Complication of substance-induced condition: with unspecified complication Qualified Code(s): F10.929 - Alcohol use, unspecified with intoxication, unspecified (2) Depression Depression Type: unspecified Qualified Code(s): F32.9 - Major depressive disorder, single episode, unspecified
[2022-08-27] MEDS: predniSONE 10 MG TABLET PO SCH ×2 (08:40→20:59)
[2022-08-27] MEDS: buPROPion XL 150 MG TABCR PO SCH (08:41)
[2022-08-27] MEDS: SERTRALINE HCL 50 MG TABLET PO SCH (08:41)
[2022-08-27] MEDS ORDERED: AZITHROMYCIN 250 MG TAB PO SCH (09:00)
[2022-08-28] MEDS: ALBUTEROL 0.5% NEB SOLN 2.5 MG/0.5 ML VIAL NEB SCH ×5 (01:31→20:30)
[2022-08-28] MEDS: buPROPion XL 150 MG TABCR PO SCH (08:18)
[2022-08-28] MEDS: predniSONE 10 MG TABLET PO SCH (08:18)
[2022-08-28] MEDS: SERTRALINE HCL 50 MG TABLET PO SCH (08:19)
--- NOTE | 2022-08-28 15:25 | Psychiatric Progress Note ---
Date of Service August 28, 2022 Impression / Recommendations Impression 61 yo male with a hx of alcohol use disorder and recurrent depression, PTSD dx, presented to ED with worsening depression/SI and ETOH use in the context of relationship stressors with legal ramifications and recurrence of CA. 08/28/22: improving (1) Depression: (2) Alcohol intoxication: (3) Suicidal ideation: Plan 08/28/22: increase Zoloft 100 mg daily. Scheduled Vistaril at hs. Taper steroids to 20 mg BID. Would benefit from nebulizer at home at discharge. 08/27/22: continue current medications and treatment plan with planned titration of Zoloft likely soon, will be tapering steroids again tomorrow. 08/26/22: The patient was admitted to the [facility] ([facility] unit) on q15 min checks (behavioral with suicide precautions) for safety. The patient will participate in group, recreational, and milieu therapies and will be offered additional individual and family sessions as clinically appropriate. He will be offered Ativan prn according to objective AWSS protocol. He is declining Neurontin loading. Albuterol nebs per respiratory therapy. Will complete antibiotics and steroid course. consider medicine consult. Risks/benefits/alternatives reviewed re: restart of his Wellbutrin and Zoloft as planned from outpatient provider. He desires to resume these medications. 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 Chief Complaint "I worry about all I have to do". Review of Systems Sleep Information Total Hours of Sleep: 6 Sleep Comments: typically works nights, feels Vistaril was effective Meal Information Percent Meal Consumed - Breakfast: 100 Percent Meal Consumed - Lunch: 100 Percent Meal Consumed - Dinner: 100 Subjective Subjective Patient was seen & assessed and interval progress reviewed with treatment team. Attending groups. Tolerating medications. Still having some sleep issues that he denies are related to his breathing. Physical Exam Psychiatric Orientation: alert and oriented x 3 Apperance: appropriately dressed Eye Contact: good eye contact Motor Behavior: no abnormal motor movements Speech: normal rate/rhythm/volume of speech Affect: + depressed affect Mood: + depressed mood Thought Process: goal directed thought process Thought Content: reality based without delusions Suicidal Thoughts: denies suicidal thoughts Homicidal Thoughts: denies homicidal thoughts Hallucinations: no auditory hallucinations and no visual hallucinations Cognition: attention grossly intact and language grossly intact Estimated Intelligence: consistent with education level Insight: + limited insight Judgement: + limited judgement Vital Signs (Past 24 Hours) Last Vital Signs Temp 36.9 C 08/28/22 06:35 Pulse 114 H 08/28/22 13:00 Resp 16 08/28/22 13:00 BP 106/60 08/28/22 06:35 Pulse Ox 95 08/28/22 13:00 O2 Del Method 08/28/22 13:00 Results & Data ([facility]) Current Inpatient Medications Current Inpatient Medications: Current Inpatient Medications Acetaminophen (Acetaminophen 325 Mg Tab) 650 mg PO Q4H PRN PRN Reason: Headache or Minor Fever Stop: 09/25/22 09:51 Al Hydrox/Mg Hydrox/Simethicone (Aluminum/Magnesium Susp 30 Ml Udc) 30 ml PO Q4H PRN PRN Reason: GI Upset Stop: 09/25/22 09:51 Albuterol (Pt's Own Med: Albuterol Hfa 8 Gm Inhaler) 2 puffs INH Q4 PRN PRN Reason: Wheezing Stop: 09/25/22 11:35 Albuterol (Albuterol 0.5% Neb Soln 2.5 Mg/0.5 Ml Vial) 2.5 mg NEB Q6R [facility]; Protocol Stop: 09/25/22 18:59 Last Admin: 08/28/22 13:00 Dose: 2.5 mg Bismuth Subsalicylate (Bismuth Subsalicylate Liqd 236 Ml) 15 ml PO PRN PRN PRN Reason: Loose Stool Stop: 09/25/22 09:51 Bupropion HCl (Bupropion Xl 150 Mg Tabcr) 150 mg PO DAILY CORNELIUS Stop: 09/26/22 08:59 Last Admin: 08/28/22 08:18 Dose: 150 mg Guaifenesin/Dextromethorphan (Guaifenesin/Dextrom Syrup 100mg/10mg 5ml Udc) 5 ml PO Q6H PRN PRN Reason: Cough Stop: 09/25/22 13:19 Hydroxyzine HCl (Hydroxyzine Hcl 25 Mg Tab) 50 mg PO HSZ PRN PRN Reason: Insomnia Stop: 09/25/22 09:51 Last Admin: 08/27/22 21:02 Dose: 50 mg Hydroxyzine HCl (Hydroxyzine Hcl 25 Mg Tab) 25 mg PO Q4H PRN PRN Reason: Anxiety Stop: 09/25/22 09:51 Hydroxyzine HCl (Hydroxyzine Hcl 25 Mg Tab) 50 mg PO HS CORNELIUS Stop: 09/27/22 21:59 Magnesium Hydroxide (Magnesium Hydroxide Susp 30 Ml Udc) 30 ml PO DAILY PRN PRN Reason: Constipation Stop: 09/25/22 09:51 Prednisone (Prednisone 20 Mg Tab) 20 mg PO BID CORNELIUS Stop: 09/27/22 20:59 Sertraline HCl (Sertraline Hcl 100 Mg Tablet) 100 mg PO QAM CORNELIUS Stop: 09/28/22 08:59 Sodium Chloride (Sodium Chloride 0.65% Na Soln 45 Ml (Roberts)) 1 - 2 sprays NA PRN PRN PRN Reason: Nasal Dryness/Congestion Stop: 09/25/22 09:51 Mental Health & Subst Abuse Tx Psychiatrist Name of Psychiatrist: Catherine Costello Psychiatrist's Date of Appointment with Psychiatrist: 09/05/22 Time of Appointment with Psychiatrist: 10:15am Psychiatric Appointment Comment: [address] [place], [place] Therapist Name of Therapist: Reynaldo (Intake) Therapist's Date of Therapist Appointment: 09/04/22 Time of Therapist Appointment: 8:30am Therapy Appointment Comment: [address], [address] Console Assembler Name of Console Assembler: [facility])- Post Discharge Appointments Primary Care Physician Name Of Family Doctor: Fozia Mcintosh Primary Care Date of Appointment with PCP: 09/02/22 Time of Appointment with PCP: 10:45am arrival Provider Appointment Comment: [address] [place] [address] Contact Information Discharge Discharge [address]: [address] [place] [address] (1) Depression Depression Type: unspecified Qualified Code(s): F32.9 - Major depressive disorder, single episode, unspecified (2) Alcohol intoxication Complication of substance-induced condition: with unspecified complication Qualified Code(s): F10.929 - Alcohol use, unspecified with intoxication, unspecified
[2022-08-28] MEDS: predniSONE 20 MG TAB PO SCH (21:20)
[2022-08-28] MEDS ORDERED: hydrOXYzine HCl 25 MG TAB PO SCH (22:00)
[2022-08-29] MEDS: ALBUTEROL 0.5% NEB SOLN 2.5 MG/0.5 ML VIAL NEB SCH ×3 (01:06→14:16)
[2022-08-29] MEDS: predniSONE 20 MG TAB PO SCH (08:40)
[2022-08-29] MEDS: buPROPion XL 150 MG TABCR PO SCH (08:40)
[2022-08-29] MEDS ORDERED: SERTRALINE HCL 100 MG TABLET PO SCH (09:00)
[2022-08-29] MEDS ORDERED: DESTROY THIS MEDICATION ONE (10:50)
--- NOTE | 2022-08-29 13:00 | Discharge Summary ---
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 He was seen at [facility] urgent care a few days prior to admission and treated for "emphysema". Between his cough/wheeze and steroid loading he has not been sleeping well. He is also feeling more depressed anticipation of "another" PFA hearing on 08/28/22. He had been living with his girlfriend up until this recent charge and has a history of homelessness prior to that. They have a history of dramatic breakups, one of which preciptiated his suicidal attempte (OD on Tylenol #3 and alcohol). He denies a history of alcohol withdrawal but there is documentation on chart of past rehab stays and heavy alcohol use. His VS were stable in ED save tachycardia when walked to check O2 saturations on ambulation. An EKG and CXR were requested from ED as part of medical clearance and he arrived to the unit in discomfort/audible wheeze with some benefit from nebulizer treatment. He has a longstanding positive response to Zoloft and Wellbutrin but hasn't taken for at least 2 months. He was to restart but reports not following through as he wasn't sure when to take his medications given his work schedule, he typically awakens for the day around 2:30 pm. Other stressor includes recurrence of his prostate CA following prostatectomy. Physical Exam Psychiatric See admission H&P and DOD assessment. Vital Signs (Past 24 Hours) Last Vital Signs Temp 36.7 C 08/29/22 06:37 Pulse 110 H 08/29/22 08:22 Resp 20 08/29/22 08:22 BP 112/62 08/29/22 06:38 Pulse Ox 92 08/29/22 08:22 O2 Del Method 08/29/22 08:22 Principal Diagnosis major depressive disorder Psychiatric Data See daily stay summary. In short, safety was maintained and the patient was cooperative with care. Medication changes included starting his Wellbutrin and Zoloft as ordered outpatient, continuing his antibiotics and steroid taper as per urgent care with addition of nebulizer treatments and they tolerated this well. He declined a family sessions given parent's age and his main identified support was girlfriend (active PFA). A safety plan was completed prior to discharge. Day of Discharge Assessment Today the patient voices readiness for discharge. They note improvement in mood and deny thoughts to harm self or others. Thoughts remain organized and they are improved from admission. There is no evidence of psychosis. They agree to take mediations as prescribed and keep follow-up appointments. They are stable for discharge to outpatient level of care. They are future focussed with regards to return to work next week and their hearing next month to resolve legal matters. He does not plan to resume smoking and agreed to cut back on his alcohol intake as can have negative impact on mood. He works nights and voiced understanding that any meds marked for am should be taken when he awakens. Transition of Care Transition Of Care Record: was reviewed with the patient Advance Directives Advance Directives Information Provided: Yes Advance Directives: No Mental Health Advance Directive: No Advance Directives on File: No Living Will: No Power of Boiler Maker: No Advance Directives Reason:: Declines as Mental Health Visit. 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[employer]) Supportive Family: Yes (stays with parents) Tobacco Cessation at Discharge Tobacco Cessation Medication Prescribed at Discharge: Offered & Pt Refused Total Time Total Time Spent: Greater Than 30 Minutes Total Time Includes: Examination of the patient, Discharge Planning and Medication Reconciliation Discharge Data Lab Results 08/26/22 08/26/22 08/26/22 00:15 00:15 00:33 WBC 6.00 RBC 4.45 L Hgb 16.8 Hct 47.1 MCV 105.8 H MCH 37.8 H MCHC 35.7 RDW Std Deviation 48.8 H RDW Coeff of Silvia 12.4 Plt Count 230 MPV 9.8 Immature Gran % (Auto) 0.2 Neut % (Auto) 52.2 Lymph % (Auto) 39.8 [place] % (Auto) 7.3 Eos % (Auto) 0.3 Baso % (Auto) 0.2 Neut # (Auto) 3.13 Lymph # (Auto) 2.39 [place] # (Auto) 0.44 Eos # (Auto) 0.02 Baso # (Auto) 0.01 Immature Gran # (Auto) 0.01 Sodium Potassium Chloride Carbon Dioxide Anion Gap BUN Creatinine Est Cr Clr Drug Dosing Est GFR ( Amer) Est GFR (Non-Af Amer) BUN/Creatinine Ratio Glucose Calcium Total Bilirubin AST ALT Alkaline Phosphatase Total Protein Albumin Globulin Albumin/Globulin Ratio TSH Urine Color Yellow Urine Appearance Clear Urine pH 6.0 Ur Specific Olema 1.003 Urine Protein Negative Urine Glucose (UA) Negative Urine Ketones Negative Urine Blood 1+ H Urine Nitrite Negative Urine Bilirubin Negative Urine Urobilinogen Negative Ur Leukocyte Esterase Negative Urine WBC (Auto) 0 Urine RBC (Auto) 0-4 U Hyaline Cast (Auto) 0 U Epithel Cells (Auto) 0-5 Urine Bacteria (Auto) Negative Salicylates Urine Opiates Screen Neg Ur Methadone, Qual Neg Acetaminophen Urine Barbiturates Neg Ur Phencyclidine (PCP) Neg U Amphetamin/Meth Scrn Neg MDMA (Ecstasy) Screen Neg U Benzodiazepines Scrn Neg Ur Cocaine Metabolite Neg U Marijuana (THC) Screen Neg Ethyl Alcohol mg/dL SARS-CoV-2, RNA, NAAT 08/26/22 08/26/22 08/26/22 00:33 00:33 00:33 WBC RBC Hgb Hct MCV MCH MCHC RDW Std Deviation RDW Coeff of Silvia Plt Count MPV Immature Gran % (Auto) Neut % (Auto) Lymph % (Auto) [place] % (Auto) Eos % (Auto) Baso % (Auto) Neut # (Auto) Lymph # (Auto) [place] # (Auto) Eos # (Auto) Baso # (Auto) Immature Gran # (Auto) Sodium 138 Potassium 4.0 Chloride 104 Carbon Dioxide 27 Anion Gap 7 BUN 9 Creatinine 0.93 Est Cr Clr Drug Dosing 68.5 Est GFR ( Amer) 100.9 Est GFR (Non-Af Amer) 87.1 BUN/Creatinine Ratio 9.7 L Glucose 77 Calcium 9.1 Total Bilirubin 0.3 AST 28 ALT 31 Alkaline Phosphatase 74 Total Protein 7.0 Albumin 3.9 Globulin 3.1 Albumin/Globulin Ratio 1.3 TSH 0.804 Urine Color Urine Appearance Urine pH Ur Specific [place] Urine Protein Urine Glucose (UA) Urine Ketones Urine Blood Urine Nitrite Urine Bilirubin Urine Urobilinogen Ur Leukocyte Esterase Urine WBC (Auto) Urine RBC (Auto) U Hyaline Cast (Auto) U Epithel Cells (Auto) Urine Bacteria (Auto) Salicylates < 3.0 L Urine Opiates Screen Ur Methadone, Qual Acetaminophen < 3 L Urine Barbiturates Ur Phencyclidine (PCP) U Amphetamin/Meth Scrn MDMA (Ecstasy) Screen U Benzodiazepines Scrn Ur Cocaine Metabolite U Marijuana (THC) Screen Ethyl Alcohol mg/dL SARS-CoV-2, RNA, NAAT 08/26/22 08/26/22 00:33 00:33 WBC RBC Hgb Hct MCV MCH MCHC RDW Std Deviation RDW Coeff of Silvia Plt Count MPV Immature Gran % (Auto) Neut % (Auto) Lymph % (Auto) [place] % (Auto) Eos % (Auto) Baso % (Auto) Neut # (Auto) Lymph # (Auto) [place] # (Auto) Eos # (Auto) Baso # (Auto) Immature Gran # (Auto) Sodium Potassium Chloride Carbon Dioxide Anion Gap BUN Creatinine Est Cr Clr Drug Dosing Est GFR ( Amer) Est GFR (Non-Af Amer) BUN/Creatinine Ratio Glucose Calcium Total Bilirubin AST ALT Alkaline Phosphatase Total Protein Albumin Globulin Albumin/Globulin Ratio TSH Urine Color Urine Appearance Urine pH Ur Specific [place] Urine Protein Urine Glucose (UA) Urine Ketones Urine Blood Urine Nitrite Urine Bilirubin Urine Urobilinogen Ur Leukocyte Esterase Urine WBC (Auto) Urine RBC (Auto) U Hyaline Cast (Auto) U Epithel Cells (Auto) Urine Bacteria (Auto) Salicylates Urine Opiates Screen Ur Methadone, Qual Acetaminophen Urine Barbiturates Ur Phencyclidine (PCP) U Amphetamin/Meth Scrn MDMA (Ecstasy) Screen U Benzodiazepines Scrn Ur Cocaine Metabolite U Marijuana (THC) Screen Ethyl Alcohol mg/dL 150.5 H SARS-CoV-2, RNA, NAAT NEGATIVE Hospital Course (1) Depression: (2) Alcohol intoxication: (3) Suicidal ideation: Plan 08/28/22: increase Zoloft 100 mg daily. Scheduled Vistaril at hs. Taper steroids to 20 mg BID. Would benefit from nebulizer at home at discharge. 08/27/22: continue current medications and treatment plan with planned titration of Zoloft likely soon, will be tapering steroids again tomorrow. 08/26/22: The patient was admitted to the [facility] (locked inpatient mental health unit) on q15 min checks (behavioral with suicide precautions) for safety. The patient will participate in group, recreational, and milieu therapies and will be offered additional individual and family sessions as clinically appropriate. He will be offered Ativan prn according to objective AWSS protocol. He is declining Neurontin loading. Albuterol nebs per respiratory therapy. Will complete antibiotics and steroid course. consider medicine consult. Risks/benefits/alternatives reviewed re: restart of his Wellbutrin and Zoloft as planned from outpatient provider. He desires to resume these medications. Mental Health & Subst Abuse Tx Psychiatrist Name of Psychiatrist: Catherine Costello Psychiatrist's Date of Appointment with Psychiatrist: 09/05/22 Time of Appointment with Psychiatrist: 10:15am Psychiatric Appointment Comment: [address] [place], [place] Therapist Name of Therapist: Reynaldo (Intake) Therapist's Date of Therapist Appointment: 09/04/22 Time of Therapist Appointment: 8:30am Therapy Appointment Comment: [address], [address] Drafter Refrigeration Name of Drafter Refrigeration: [facility] ([facility])- Post Discharge Appointments Primary Care Physician Name Of Family Doctor: Fozia Mcintosh Primary Care Date of Appointment with PCP: 09/02/22 Time of Appointment with PCP: 10:45am arrival Provider Appointment Comment: [address] [place] [address] Smoking Cessation Counseling Tobacco Cessation Medication Prescribed at Discharge: Offered & Pt Refused Contact Information Discharge Discharge Address: [address] [place] [id number] Discharge Plan Discharge Items Patient Disposition: Home - Self-Care Reason For Visit: MDD Discharge Diagnosis: major depressive disorder Activity: Resume your previous activity Non-emergency contact: Primary Care Provider, Psychiatrist and Therapist Call non-emergency contact if: you have any medication questions and your symptoms worsen Follow-up/Referrals: Inocencia Cisneros PA-C [Primary Care Provider] - Diet: Regular Addtl Attending Provider Instructions: SPECIAL CARE INSTRUCTIONS: 1. Follow through with your scheduled aftercare appointments. If unable to keep an appointment, please call to reschedule. 2. Take your medication only as prescribed. Medication should not be changed or stopped without the approval of your doctor. In the event of worsening symptoms or concerns about side effects, contact your doctor immediately. 3. Utilize new healthy coping skills, anger management skills, and stress management skills learned during your hospitalization. Journal feelings and process them with a support person. Identify stressors or situations that may result in relapse, deterioration or inappropriate behaviors and develop a plan to deal with those issues. 4. If your coping skills are ineffective and you are in crisis, contact your outpatient providers for direction. If unable to reach your providers, please call the [facility] CRISIS LINE AT , go to the [facility] walk-in center at [address], [address], [place], or go to the closest Emergency Room. 5. Avoid alcohol and un-prescribed drugs. 6. You have been provided with the Mental Health Advance Directives Pamphlet for your review. 7. Your condition is stable for discharge to outpatient level of care, but recovery is an ongoing process. Ifthoughts to harm yourself or others return, follow the safety plan developed during your stay. Planning for a safe return home includes securing weapons. Our treatment team recommends weaponsbe removed from the home until your outpatient provider reassesses your progress. In rare cases where the items themselvescannot be removed, guns and ammunitionshould be secured separatelyand keys stored by a reliable personoutside of the home. If you were admitted on an involuntary commitment, the police or other legal authorities may be involved in this process. AFTERCARE APPOINTMENTS: * Please call your insurance company prior to your scheduled appointment to confirm your aftercare providers are covered. Take your insurance information to your appointments. WHO TO CALL AND WHEN: Medical Emergencies: For questions or emergencies related to your hospital stay, please contact the Inpatient Behavioral Health Unit at [phone]. A junior recruiter is on-call 23/06 for the Behavioral Health Unit for emergencies At any time you feel your situation is an emergency, you may also call 911 immediately. Pending Studies at Discharge: No Stand-Alone Forms: [facility] [employer], Smoking Cessation Medications and DC Order Prescriptions: New albuterol sulfate 2.5 mg/0.5 mL Solution For Nebulization 2.5 mg NEB Q6R Qty: 30 0RF Continued sertraline 100 mg tablet 100 mg PO DAILY albuterol sulfate 90 mcg/actuation HFA aerosol inhaler 2 puff INHALATION Q4 PRN (Reason: Wheezing) hydroxyzine pamoate 25 mg capsule 25 mg PO TID PRN (Reason: Anxiety) Rx Instructions: 1AM, 1 at noon, 1 in evening bupropion HCl 150 mg tablet extended release 24 hr 150 mg PO DAILY Changed prednisone 10 mg tablet 20 mg PO BID Qty: 1 0RF Label Comments: Pt reports he is on day 2 of 5 tabs Rx Instructions: and taper as directed Discontinued azithromycin 250 mg tablet 250 mg PO DAILY Label Comments: Pt reports he is on day 3 Rx Instructions: 08/24: 250mg BID X1 day, then 1 tab PO x4 days Discharge Orders: Discharge Order (Routine); Ordered 08/29/22 Ordered By: Yoselin Vasques Admission Data Admit Date/Time: 08/26/22 09:52 Attending Provider: Yoselin Vasques Admit Provider: Yoselin Vasques Primary Care Provider: Inocencia Cisneros Other Providers: [facility] Coding Level of Care Code 67929 D/C day mgmt > 30 min Diagnoses Depression F32.9 Depression Type: unspecified Alcohol intoxication F10.929 Complication of substance-induced condition: with unspecified complication Suicidal ideation R45.851
== END 2022-08-29 14:24 | disposition home or self-care (01) | DRG 881 ==
LOC: ED 23:50 → 3S 08-26 09:52